=== PATIENT | female | born 1970 | race Caucasian/White ===

== ENCOUNTER 2017-01-14 04:45 | Emergency (ER) | payer OTHER ==
[~2017-01-14] VITALS: Ht 154.9 cm; Wt 136.1 kg
--- NOTE | 2017-01-14 04:54 | NUR ---
PT TAKEN TO BED 4
[2017-01-14 05:00] VITALS: BP 150/76
--- NOTE | 2017-01-14 05:03 | NUR ---
46Y F BIB SELF C/O RUQ PAIN RADIATING TO THE BACK X 1 WEEK. PT STATES SHE HAS FIBROMYALGIA AND FATTY LIVER. PT DENIES ANY N/V/D, SOB, CP AT THE MOMENT. PT IS AAOX4, BREATHING IS UNLABORED AND CLEAR BILAT. Addendum: 01/14/17 at 0510 by MEDND 46Y F BIB SELF C/O RUQ PAIN RADIATING TO THE BACK X 1 WEEK. PT STATES SHE HAS FIBROMYALGIA AND FATTY LIVER. PT DENIES ANY N/D, SOB, CP AT THE MOMENT. PT IS AAOX4, BREATHING IS UNLABORED AND CLEAR BILAT.
--- NOTE | 2017-01-14 05:06 | NUR ---
Dr. Mosquera evaluating patient at bedside.
[2017-01-14] MEDS ORDERED: NACL 0.9% 1,000 ML IV ONE (05:10)
[2017-01-14] MEDS ORDERED: MORPHINE SULFATE 4 MG/ML SYR IVP ONE (05:10)
[2017-01-14] MEDS ORDERED: ONDANSETRON 4 MG/2 ML VIAL IVP ONE (05:10)
[2017-01-14 06:03] LABS: HEMATOCRIT 39.3 % (36-48); HEMOGLOBIN 12.3 g/dL (12.0-16.0); MEAN CORPUSCULAR HEMOGLOBIN 24 pg (27-31); MEAN CORPUSCULAR HGB CONC 31 g/dL (33-37); MEAN CORPUSCULAR VOLUME 77 fL (80-94); PLATELET COUNT (AUTO) 388 K/uL (140-450); RED CELL DISTRIBUTION WIDTH 14.6 % (11.6-13.7); WHITE BLOOD COUNT (AUTO) 15.8 K/uL (4.8-10.8)
[2017-01-14 06:05] LABS: ANION GAP 10.9 (8-16); BILIRUBIN,URINE NEGATIVE (NEGATIVE); BLOOD, URINE 2+ (NEGATIVE); CARBON DIOXIDE 26.5 mmol/L (21-32); COLOR,URINE YELLOW (YELLOW); CREATININE 0.8 mg/dL (0.6-1.3); LEUKOCYTE ESTERASE ,URINE NEGATIVE (NEGATIVE); NITRITE, URINE NEGATIVE (NEGATIVE); PH,URINE 7.5 (5.0-9.0); POTASSIUM 4.4 mmol/L (3.5-5.1); PROTEIN,URINE TRACE (NEGATIVE); UGLUCOSE NEGATIVE (NEGATIVE); UROBILINOGEN,URINE 0.2 EU/dL (0.2 - 1)
[2017-01-14 06:09] LABS: EOSINOPHILS % (MANUAL) 5 % (0-4); LYMPHOCYTES % (MANUAL) 6 % (20-46); MONOCYTES % (MANUAL) 3 % (5-12); NEUTROPHILS % (MANUAL) 86 (43-65)
[2017-01-14 06:13] LABS: ALBUMIN 3.1 g/dL (3.4-5.0); TOTAL BILIRUBIN 0.2 mg/dL (0.0-1.0); TOTAL PROTEIN, SERUM 7.9 g/dL (6.4-8.2)
[2017-01-14 06:20] LABS: APPEARANCE,URINE SLIGHTLY HAZY (CLEAR)
[2017-01-14 06:21] LABS: BACTERIA,URINE None Seen /HPF (None Seen); RBC,URINE 20-50 /HPF (0-5); SQUAMOUS EPITHELIAL CELL,UR 4-10 (MOD) /LPF (0-3 (FEW)); WBC,URINE 0-5 (RARE) /HPF (0-5)
[2017-01-14] MEDS ORDERED: KETOROLAC 30 MG/ML VIAL IVP ONE (06:35)
--- NOTE | 2017-01-14 06:36 | NUR ---
Ultrasound at bedside.
--- NOTE | 2017-01-14 07:12 | NUR ---
Pt report given to FRANK AZAR . Transfer of care at this time.
[2017-01-14] MEDS ORDERED: DICYCLOMINE HCL LIQUID 20 MG, ALUMINUM HYD/MAG/SIMETHICONE 30 ML, LIDOCAINE VISCOUS 2% ... PO ONE ×3 (07:20)
--- NOTE | 2017-01-14 07:25 | NUR ---
PT RESTING ON BED;NO ACUTE DISTRESS NOTED;WILL CONTINUE TO MONITOR PT.
[2017-01-14] MEDS ORDERED: DICYCLOMINE HCL LIQUID 10 MG/5 ML UDC ONE (07:32)
[2017-01-14] MEDS ORDERED: LIDOCAINE VISCOUS 2% 20 ML UDC ONE (07:32)
--- NOTE | 2017-01-14 07:48 | NUR ---
PT VERBALIZES RELIEF FROM PAIN;PT STATES "I FEEL MUCH BETTER"PAIN IS SLIGHTLY RELIEVED"NO FACIAL GRIMMACING/GUARDING/MOANING NOTED;WILL C ONTINUE TO MONITOR PT.
--- NOTE | 2017-01-14 08:00 | NUR ---
PT IS FOR DISCHARGE;PT ASKED IF SHE IS OKAY TO DRIVE BECAUSE SHE FEELS SLEEPY BECAUSE OF THE MORPHINE;TATE NURSE ASSESSED AND TALKED TO PT.WILL LET PT STAY FOR A WHILE UNTIL PT CAN DRIVE SELF HOME;WILL CONTINUE TO MONITOR PT.
--- NOTE | 2017-01-14 08:45 | NUR ---
PT SLEEPING;NO ACUTE DISTRESS NOTED;ALL MONITORS IN PLACED.
--- NOTE | 2017-01-14 09:05 | NUR ---
PT WOKE UP;PT STATES "I'M OKAY NOW"I CAN DRIVE HOME NOW"DENIES DIZZINESS OR FEELING SLEEPY;NO ACUTE DISTRESS NOTED;
--- NOTE | 2017-01-14 09:12 | NUR ---
Patient discharged with v/s stable. Written and verbal after care instructions given and explained. Patient alert, oriented and verbalized understanding of instructions. Ambulatory with steady gait. All questions addressed prior to discharge. ID band removed. Patient advised to follow up with PMD. Rx of MYLANTA AND NORCO given. Patient educated on indication of medication including possible reaction and side effects. Opportunity to ask questions provided and answered.
[2017-01-14 09:13] VITALS: BP 132/66
== END 2017-01-14 09:12 | disposition home or self-care (01) ==
LOC: MED 04:45
DX: R10.11 Right upper quadrant pain (principal); R11.2 Nausea with vomiting, unspecified
CPT/HCPCS: 36415; 76705; 80053; 81001; 81025; 83690; 85025; 96361; 96374; 96375; 99285; J1885; J2270; J2405; Q0092